=== PATIENT | female | born 1990 | race Caucasian/White ===

== ENCOUNTER 2017-05-19 11:26 | Emergency (ER) | payer MEDICAID, OTHER ==
[~2017-05-19] VITALS: Ht 167.6 cm; Wt 121.7 kg
[2017-05-19] MEDS ORDERED: KETOROLAC 30 MG/1 ML IM ONE (13:00)
[2017-05-19] MEDS ORDERED: HYDROcodone/APAP 5/325 TABLET PO ONE (13:00)
[2017-05-19 13:08] LABS: BASOPHILS # (AUTO) 0.07 x10^3/uL (0-0.1); BASOPHILS % (AUTO) 1 % (0-1); EOSINOPHILS # (AUTO) 0.01 x10^3/uL (0-0.4); EOSINOPHILS % (AUTO) 0 % (1-7); LYMPHOCYTES # (AUTO) 1.04 x10^3/uL (1-3.4); LYMPHOCYTES % (AUTO) 7 % (22-44); MD NO; MEAN CORPUSCULAR HEMOGLOBIN 29.6 pg (27.0-34.8); MEAN CORPUSCULAR HGB CONC 33.1 g/dL (32.4-35.8); MEAN CORPUSCULAR VOLUME 89.3 fL (80-100); MEAN PLATELET VOLUME 8.2 fL (7.4-10.4); MONOCYTES # (AUTO) 0.36 x10^3/uL (0.2-0.8); MONOCYTES % (AUTO) 2 % (2-9); NEUTROPHILS # (AUTO) 13.97 x10^3/uL (1.8-6.8); NEUTROPHILS % (AUTO) 91 % (42-75); PLATELET COUNT 286 x10^3/uL (130-400); RED BLOOD COUNT 4.64 x10^6/uL (3.82-5.3); RED CELL DISTRIBUTION WIDTH 12.9 % (9.6-15.2)
[2017-05-19 13:18] LABS: ALBUMIN 3.8 g/dL (3.4-5.0); ANION GAP 9 mmol/L (5-15); CALCIUM 8.7 mg/dL (8.5-10.1); CHLORIDE 103 mmol/L (98-107); CREATININE 0.88 mg/dL (0.55-1.02)
[2017-05-19] MEDS ORDERED: KETOROLAC 30 MG/1 ML ONE (13:28)
[2017-05-19] MEDS ORDERED: HYDROcodone/APAP 5/325 TABLET ONE (13:29)
[2017-05-19 14:37] LABS: CULTURE INDICATED? YES; HCG UR SG 1.024 (1.003-1.030); MICROSCOPIC INDICATED
[2017-05-19 15:27] VITALS: BP 113/66
== END 2017-05-19 15:43 | disposition home or self-care (01) ==
LOC: ED 14:27
DX: M54.41 Lumbago with sciatica, right side (principal); R05 Cough
CPT/HCPCS: 36415; 80048; 81001; 81025; 82040; 85025; 87086; 96372; 99284; J1885